=== PATIENT | male | born 1965 | race Caucasian/White ===

== ENCOUNTER 2016-11-26 10:21 | Emergency (ER) | payer OTHER ==
[2016-11-26 10:42] VITALS: BP 108/67
--- NOTE | 2016-12-16 20:49 | UC ---
carmel Jurado Timothy, scribed for Radha Edwards DO on 11/26/16 at 1059 . Cardiac HPI - HPI Summary HPI Summary: Gal Mars is a 51 yo male presenting to [facility] with 6/10 left lateral CP and ache for the past week, getting worse constantly. He denies any Hx of similar Sx or any unusual activities that might instigate chest pain. He states his pain is only present when he is moving his left arm or bending over or lifting, and is in no pain at this moment. Cough also increases the pain. He does not notice pain in the morning until after he wakes up and begins moving around. He denies any other Sx. Pt repeatedly denies nausea. His MHx includes narcolepsy and GERD. - History of Current Complaint Stated Complaint: CHEST PAIN Time Seen by Provider: 11/26/16 11:03 Hx Obtained From: Patient Onset/Duration: Gradual Onset, Lasting Days, Still Present Timing: Constant Initial Severity: Worse Since: - now Current Severity: Moderate Pain Intensity: 6 Chest Pain Location: Left Lateral Aggravating: Position, Movement - of the left arm, Deep Breaths - and coughing Alleviating: Rest Associated Signs & Symptoms: Positive: Chest Pain, Nausea/Vomiting. Negative: Dizziness, SOB - Allergy/Home Medications Allergies/Adverse Reactions: Allergies Allergy/AdvReac Type Severity Reaction Status Date / Time No Known Allergies Allergy Verified 06/18/13 14:55 PMH/Surg Hx/FS Hx/Imm Hx - Additional Past Medical History Additional PMH: narcolepsy GI/ History Of: Reports: Gastroesophageal Reflux - Surgical History Surgical History: None - Family History Known Family History: Negative: Cardiac Disease, Hypertension, Diabetes - Social History Alcohol Use: Occasionally Substance Use Type: None Smoking Status (MU): Never Smoked Tobacco Review of Systems Constitutional: Negative Skin: Negative Eyes: Negative ENT: Negative Respiratory: Negative Cardiovascular: Chest Pain Gastrointestinal: Negative Genitourinary: Negative Motor: Negative Neurovascular: Negative Musculoskeletal: Negative Neurological: Negative Psychological: Negative All Other Systems Reviewed And Are Negative: Yes Physical Exam Triage Information Reviewed: Yes Appearance: Well-Appearing, No Pain Distress, Well-Nourished Vital Signs: Initial Vital Signs Temp 99.0 F 11/26/16 10:38 Pulse 68 11/26/16 10:38 Resp 16 11/26/16 10:38 BP 108/67 11/26/16 10:38 Pulse Ox 100 11/26/16 10:38 Vital Signs Reviewed: Yes Eyes: Positive: Conjunctiva Clear. Negative: Discharge ENT: Positive: Hearing grossly normal. Negative: Muffled/hoarse voice Neck: Positive: Supple, Nontender Respiratory: Positive: Chest non-tender, Lungs clear, Normal breath sounds, No respiratory distress, No accessory muscle use Cardiovascular: Positive: RRR, No Murmur Musculoskeletal: Positive: Other: - tenderness to palpation in the left axilla and ribs 4, 5, and 6. Rib 6 is noted to be slightly anterior to rib 7. Neurological Exam: Normal Neurological: Positive: Alert, Muscle Tone Normal Psychological Exam: Normal Psychological: Positive: Age Appropriate Behavior Skin Exam: Normal Diagnostics - EKG Cardiac Rate: NL - Impression: 1029 NSR at [address] changes. Re-Evaluation - Re-Evaluation First Eval Re-Evaluation Time: 11:25 Change: Unchanged Comment: Pt is informed of his disposition, and is agreeable to course of Tx. - Assessment/Plan Course Of Treatment: Gal Mars is a 51 yo male presenting to [facility] with left lateral CP for the passt week. After clinical examination and review of his EKG , he will be discharged home with rib injury and appriopriate instructions. - Differential Diagnoses - Chest Pain Differential Diagnosis/HQI/PQRI: Chest Wall, GI Disease, Other: - costochondritis - Clinical Impression Provider Diagnoses: rib injury Discharge - Discharge Plan Condition: Stable Disposition: HOME Patient Education Materials: Rib Contusion (ED) Referrals: Babar Peña MD [Primary Care Provider] - 2 Days Additional Instructions: ULTRAM (tramadol hydrochloride): Ultram is an excellent drug for pain relief. It is not a narcotic, but it works in a similar way. Ultram can take up to two hours for full effect. Although not addicting, Ultram is best avoided in patients with a history of drug abuse. Ultram should not be used with alcohol, sleeping pills, or narcotics. If you're prone to seizures, Ultram can make you more likely to have a seizure. Ultram can be hazardous when combined with MAO-inhibitor antidepressants (such as Nardil or Parnate). Be sure your doctor is aware of all medicines you are taking. Persons with severe liver or kidney disease should increase the time between doses of Ultram. Discuss this with your doctor if you're uncertain. Side effects of Ultram can include dizziness, nausea, constipation, sleepiness, and itching. (These side effects are also seen with narcotic pain medicines.) Please call your doctor if you have other disturbing effects. YOU WOULD LIKELY BENEFIT FROM OSTEOPATHIC TREATMENT. WE RECOMMEND THAT YOU FIND AN OSTEOPATHIC PHYSICIAN IN YOUR AREA WHO FOCUSES EXCLUSIVELY ON OSTEOPATHIC MANIPULATIVE MEDICINE WITH EXPERTISE IN MYOFACIAL, LYMPHATIC, VISCERAL AND INTEROSSEOUS WORK Please follow up with your primary care physician regarding your visit to urgent care today. Return to urgent care or the emergency department with any new or recurring symptoms. The documentation as recorded by the carmel mayer Timothy accurately reflects the service I personally performed and the decisions made by , Radha Edwards DO.
== END 2016-11-26 11:43 | disposition home or self-care (01) ==
LOC: UCEAST 10:21
DX: S29.8XXA Other specified injuries of thorax, initial encounter (principal); X58.XXXA Exposure to other specified factors, initial encounter; Y93.9 Activity, unspecified; Y92.9 Unspecified place or not applicable; R11.2 Nausea with vomiting, unspecified
CPT/HCPCS: 93005; 99212; G0463

== ENCOUNTER 2017-07-01 10:11 | Day surgery (SDC) | payer OTHER ==
[~2017-07-01 10:11] MED LIST: Acetaminophen TAB* 325 MG PO PRN; Buffered Lidocaine 0.9% SYRIN* 5 ML/SYR SYRINGE INTRADERM ONE; Buffered Lidocaine 0.9% SYRIN* 5 ML/SYR SYRINGE ONE; Cyclopentolate 1% OPTH.SOL* 2 ML BTL ONE; Ketorolac 0.5% OPHTH (NF) 0.5 % 5 ML BTL ONE; Lidocaine 1% MPF* 2 ML VIAL ONE; Neomycin/Polymy/Dex OPHTH.OIN* 3.5 GM ONE; Phenylephrine 2.5% OPTH.SOL* 2 ML BTL ONE; Povidone Iodine 5% OPTH* 30 ML BTL ONE; Tetracaine 0.5% OPTH.SOL 4 ML* 1 DROP BTL ONE; Tropicamide 1% OPTH.SOL* BTL ONE; acetaZOLAMIDE TAB* 250 MG ONE
[2017-07-01] MEDS ORDERED: Midazolam* 1 MG/ML 2 ML VIAL (2 MG) ONE (10:43)
[2017-07-01 11:52] VITALS: BP 95/63
--- NOTE | 2017-07-02 00:04 | OP ---
DATE OF OPERATION: 07/01/17 - [facility] DATE OF : 65 SURGEON: Mehran Keller MD. ANESTHESIOLOGIST: Bonilla Long DO ANESTHESIA: Monitored anesthesia care. PRE-OP DIAGNOSIS: Cataract left eye. POST-OP DIAGNOSIS: Cataract left eye. OPERATIVE PROCEDURE: Cataract surgery of left eye. IMPLANTS: SN60WF 14.0 diopter lens to the left eye. COMPLICATIONS: None. DESCRIPTION OF PROCEDURE: The patient was given phenylephrine 2.5% and cyclopentolate 1% eye drops to the operative eye in the preoperative area. The patient was brought to the operating room where a time-out was taken to identify the correct patient, site and side of the surgery. The patient's left eye was prepped and draped in usual sterile fashion with 5% Betadine. A second time-out was taken to verify the correct patient, site and side of surgery, and correct lens selection. A lid speculum was placed to the left eye. A 1-mm paracentesis blade was used to make a clear corneal incision in the inferotemporal position. Preservative-free 1% lidocaine was injected into the anterior chamber. DisCoVisc was injected into the anterior chamber. A 2.75 mm keratome blade was used to a make a triplanar incision at the superotemporal position. A cystotome initiated a capsulorrhexis, which was completed with Utrata forceps in a continuous and curvilinear manner. Hydrodissection of the lens was performed with BSS on a cannula. The lens could be spun in the capsular bag. The phacoemulsification handpiece was used with a divide-and- conquer technique to remove the nucleus in its entirety with 15.65 CDE. The I/ A handpiece then removed the residual cortical lens material. The DisCoVisc was injected to inflate the capsular bag. The planned SN60WF 14.0 diopter lens was injected into the capsular bag. The residual DisCoVisc was removed from the eye with the I/A handpiece. The corneal incisions were hydrated and no leaks occurred at physiologic pressure around 20 mmHg per palpation. The lid speculum was removed and drapes removed. Maxitrol ointment was placed on the surface of the operative eye. An adhesive patch and shield was placed on the operative eye. The patient was taken to the postoperative area in stable condition. [id number]/[facility] #: [id number] MTDD
== END 2017-07-01 11:37 | disposition home or self-care (01) ==
LOC: OREAST 10:11
PROVIDERS: ATTEND Student in an Organized Health Care Education/Training Program
DX: H25.12 Age-related nuclear cataract, left eye (principal); H04.121 Dry eye syndrome of right lacrimal gland; D69.6 Thrombocytopenia, unspecified; D72.819 Decreased white blood cell count, unspecified; G47.419 Narcolepsy without cataplexy
CPT/HCPCS: A9270-GY; J2250; V2632

== ENCOUNTER 2017-07-08 06:21 | Day surgery (SDC) | payer OTHER ==
[~2017-07-08 06:21] MED LIST changes: -Buffered Lidocaine 0.9% SYRIN* 5 ML/SYR SYRINGE ONE; -Cyclopentolate 1% OPTH.SOL* 2 ML BTL ONE; -Ketorolac 0.5% OPHTH (NF) 0.5 % 5 ML BTL ONE; -Lidocaine 1% MPF* 2 ML VIAL ONE; -Neomycin/Polymy/Dex OPHTH.OIN* 3.5 GM ONE; -Phenylephrine 2.5% OPTH.SOL* 2 ML BTL ONE; -Povidone Iodine 5% OPTH* 30 ML BTL ONE; -Tetracaine 0.5% OPTH.SOL 4 ML* 1 DROP BTL ONE; -Tropicamide 1% OPTH.SOL* BTL ONE; -acetaZOLAMIDE TAB* 250 MG ONE
[2017-07-08] MEDS ORDERED: Tetracaine 0.5% OPTH.SOL 4 ML* 1 DROP BTL ONE (07:28)
[2017-07-08] MEDS ORDERED: acetaZOLAMIDE TAB* 250 MG ONE (07:28)
[2017-07-08] MEDS ORDERED: Phenylephrine 2.5% OPTH.SOL* 2 ML BTL ONE (07:28)
[2017-07-08] MEDS ORDERED: Tropicamide 1% OPTH.SOL* BTL ONE (07:28)
[2017-07-08] MEDS ORDERED: Buffered Lidocaine 0.9% SYRIN* 5 ML/SYR SYRINGE ONE (07:28)
[2017-07-08] MEDS ORDERED: Cyclopentolate 1% OPTH.SOL* 2 ML BTL ONE (07:28)
[2017-07-08] MEDS ORDERED: Povidone Iodine 5% OPTH* 30 ML BTL ONE (07:28)
[2017-07-08] MEDS ORDERED: Neomycin/Polymy/Dex OPHTH.OIN* 3.5 GM ONE (07:28)
[2017-07-08] MEDS ORDERED: Ketorolac 0.5% OPHTH (NF) 0.5 % 5 ML BTL ONE (07:29)
[2017-07-08] MEDS ORDERED: Midazolam* 1 MG/ML 2 ML VIAL (2 MG) ONE (07:41)
[2017-07-08 08:44] VITALS: BP 100/66
--- NOTE | 2017-07-08 11:16 | OP ---
DATE OF OPERATION: 07/08/17 [facility] DATE OF : 65 SURGEON: Mehran Keller MD. ANESTHESIOLOGIST: Vishal Bloom MD ANESTHESIA: Monitored anesthesia care. PRE-OP DIAGNOSIS: Cataract, right eye. POST-OP DIAGNOSIS: Cataract, right eye. OPERATIVE PROCEDURE: Cataract surgery of the right eye. IMPLANTS: SN60WF 16.0 diopter lens to the right eye. COMPLICATIONS: None. DESCRIPTION OF PROCEDURE: The patient was given phenylephrine 2.5% and cyclopentolate 1% eye drops to the operative eye in the preoperative area. The patient was brought to the operating room where a time-out was taken to identify the correct patient, site, and side of surgery. The patient's right eye was prepped and draped in the usual sterile fashion with 5% Betadine. A second time- out was taken to verify the correct patient, site and side of surgery, and correct lens selection. A lid speculum was placed to the right eye. A 1-mm paracentesis blade was used to make a clear corneal incision in the superotemporal position. Preservative free 1% lidocaine was injected into the anterior chamber. DisCoVisc was then injected into the anterior chamber. A 2.75 mm keratome blade was used to make a triplanar incision at the inferotemporal position. A cystotome initiated a capsulorrhexis, which was completed with Utrata forceps in a continuous and curvilinear manner. Hydrodissection of the lens was performed with BSS on a cannula. The lens could be spun in the capsular bag. The phacoemulsification handpiece was used with a divide and conquer technique to remove the nucleus in its entirety with 10.88 CDE. The I/A handpiece then removed the residual cortical lens material. DisCoVisc was injected to inflate the capsular bag. The planned SN60WF 16.0 diopter lens was injected in the capsular bag. The residual DisCoVisc was removed from the eye with the I/A handpiece. The corneal incisions were hydrated and no leaks occurred at physiologic pressure around 20 mmHg per palpation. The lid speculum was removed and drapes removed. Maxitrol ointment was placed to the surface of the operative eye. An adhesive patch and shield was placed on the operative eye. The patient was taken to the postoperative area in stable condition. [id number]/[facility] #: [id number] MTDD
== END 2017-07-08 08:37 | disposition home or self-care (01) ==
LOC: OREAST 06:21
PROVIDERS: ATTEND Student in an Organized Health Care Education/Training Program
DX: H25.11 Age-related nuclear cataract, right eye (principal); Z96.1 Presence of intraocular lens; H04.121 Dry eye syndrome of right lacrimal gland; K21.9 Gastro-esophageal reflux disease without esophagitis; G47.419 Narcolepsy without cataplexy; F90.0 Attention-deficit hyperactivity disorder, predominantly inattentive type
CPT/HCPCS: A9270-GY; J2250; V2632

== ENCOUNTER 2018-04-06 13:18 | Emergency (ER) | payer OTHER ==
--- OUTSIDE RECORDS SUMMARY | 2018-04-06 13:23 | XMS REPORT ---
:1965 External Reference #:[id number] Author Organization [facility] Address [address] [place] [address] Phone [phone] Care Team Providers Name Role Phone Babar Peña M.D. Care Team Information Bank Note Designer Unavailable Payers Type Date Identification Numbers Payment Provider Subscriber Health Maintenance Effective: Policy Number: [employer] - [employer] Gal [employer] Organization (O) 05/10/2008 [id number] Group Number: [id number] [address] PayID: [id number] [place] [address] Medigap Part B Effective: Policy Number: [employer] Gal Mars 12/23/2007 [id number] Expires: 05/09/2008 Group Name: [employer]- Option A [address] [address] PayID: [id number] [place] [address] Problems Date Description Provider Status Onset: 02/27/2012 King's esophagus Babar Peña M.D. 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 every day F90.[address] 40mg 30caps take one Babar capsule by Casey, mouth every M.D. day Carpal Tunnel Wrist 06/25/2013 - Hx Misc 2units bilateral 35 Babar Stabilizer/Large/X-L 03/04/2017 4. Casey arge 0 M.D. ranitidine 06/01/2008 - Hx Tablets 150mg 60tabs Take 1 Babar 06/01/2008 Tablet Casey, Daily To M.D. Twice Daily If Needed Ranitidine HCL 06/01/2008 - Hx Tablets 150mg 60tabs Take 1 Babar 12/25/2011 Tablet Peña, Daily To M.D. Twice Daily If Needed Dextroamphetamine 12/31/2007 - Hx Tablets 10mg 60tabs 2 qd 34 Babar Sulfate 12/25/2011 7. Casey, 00 M.D. 314.00 Prilosec 12/31/2007 - Hx Capsules DR 20mg 30caps 1 PO qd 530.81 Babar Peña, 08/31/2014 M.D. 530.85 Immunizations CPT Code Status Date Vaccine Lot # [id number] Given 02/04/2015 Tdap (Adacel) [id number] Given 08/01/2011 Influenza Vaccine-Preservative Free 3 Yrs And [id number] Above [id number] Given 08/10/2005 DT (Adult) [id number] Vital Signs Date Vital Result Comment 03/17/2018 Weight 106.00 lb Weight in kg's 48.082 BP Systolic 90 mmHg BP Diastolic 62 mmHg Heart Rate 92 /min Body Temperature 99.4 F Respiratory Rate 16 /min Height 65 inches 5'5" BMI (Body Mass Index) 17.6 kg/m2 09/04/2017 Weight 110.00 lb Weight in kg's 49.896 BP Systolic 90 mmHg BP Diastolic 60 mmHg Heart Rate 85 /min Body Temperature 97.0 F Respiratory Rate 16 /min O2 % BldC Oximetry 99 % 06/25/2017 Weight 107.00 lb Weight in kg's 48.535 BP Systolic 80 mmHg BP Diastolic 50 mmHg Heart Rate 96 /min Body Temperature 98.4 F 03/05/2017 Weight 104.00 lb Weight in kg's 47.174 BP Systolic 98 mmHg BP Diastolic 60 mmHg Heart Rate 64 /min Body Temperature 98.4 F Respiratory Rate 16 /min Height 66 inches 5'6" BMI (Body Mass Index) 16.8 kg/m2 Waist Circumference 26.5 01/26/2016 Weight 110.00 lb Weight in kg's 49.896 BP Systolic 90 mmHg BP Diastolic 60 mmHg Heart Rate 60 /min 02/04/2015 Weight 110.00 lb Weight in kg's 49.896 BP Systolic 109 mmHg BP Diastolic 66 mmHg Heart Rate 74 /min Body Temperature 98.2 F Respiratory Rate 16 /min 09/01/2014 Weight 110.00 lb Weight in kg's 49.896 BP Systolic 86 mmHg BP Diastolic 52 mmHg Heart Rate 88 /min 06/25/2013 Weight 109.00 lb Weight in kg's 49.442 BP Systolic 88 mmHg Peds Cuff BP Diastolic 58 mmHg Peds Cuff Heart Rate 88 /min Body Temperature 96.1 F 01/15/2013 Weight 109.00 lb Weight in kg's 49.442 BP Systolic 90 mmHg BP Diastolic 50 mmHg Heart Rate 88 /min Height 66 inches 5'6" BMI (Body Mass Index) 17.6 kg/m2 12/11/2012 Weight 111.00 lb Weight in kg's 50.350 BP Systolic 90 mmHg BP Diastolic 60 mmHg Heart Rate 100 /min Body Temperature 97.2 F 01/04/2012 Weight 110.00 lb Weight in kg's 49.896 BP Systolic 92 mmHg BP Diastolic 64 mmHg Heart Rate 80 /min 08/09/2010 Weight 109.00 lb Weight in kg's 49.442 BP Systolic 92 mmHg BP Diastolic 64 mmHg Heart Rate 80 /min Body Temperature 96.1 F Right Visual Acuity Distance 20/30 With Glasses Left Visual Acuity Distance 20/30 With Glasses 06/01/2008 Weight 109.00 lb Weight in kg's 49.442 BP Systolic 100 mmHg BP Diastolic 60 mmHg Heart Rate 80 /min Height 65.75 inches 5'5.75" BMI (Body Mass Index) 17.7 kg/m2 01/30/2008 Weight 110.00 lb Weight in kg's 49.896 BP Systolic 90 mmHg BP Diastolic 66 mmHg Heart Rate 120 /min Height 65.75 inches 5'5.75" BMI (Body Mass Index) 17.9 kg/m2 12/31/2007 Weight 108.00 lb Weight in kg's 48.989 BP Systolic 90 mmHg BP Diastolic 60 mmHg Heart Rate 96 /min Height 65.75 inches 5'5.75" BMI (Body Mass Index) 17.6 kg/m2 Results Test Date Test Result H/L Range Note CBC Auto Diff 05/10/2017 White Blood Count 3.8 10^3/uL 3.5-10.8 Red Blood Count 4.55 10^6/uL 4.0-5.4 Hemoglobin 14.6 g/dL 14.0-18.0 Hematocrit 42 % 42-52 Mean Corpuscular Volume 92 fL 80-94 Mean Corpuscular Hemoglobin 32 pg High 27-31 Mean Corpuscular HGB Conc 35 g/dL 31-36 Red Cell Distribution Width 14 % 10.5-15 Platelet Count 116 10^3/uL Low 150-450 Mean Platelet Volume 8 um3 7.4-10.4 Abs Neutrophils 2.8 10^3/uL 1.5-7.7 Abs Lymphocytes 0.6 10^3/uL Low 1.0-4.8 Abs Monocytes 0.3 10^3/uL 0-0.8 Abs Eosinophils 0.1 10^3/uL 0-0.6 Abs Basophils 0 10^3/uL 0-0.2 Abs Nucleated RBC 0 10^3/uL Granulocyte % 72.8 % 38-83 Lymphocyte % 16.0 % Low 25-47 Monocyte % 8.8 % 1-9 Eosinophil % 1.8 % 0-6 Basophil % 0.6 % 0-2 Nucleated Red Blood Cells % 0.1 Laboratory test 12/18/2016 Clotest SEE RESULT BELOW 1 finding Laboratory test 12/18/2016 Surgical Interface Order SEE RESULT BELOW 2 finding Laboratory test 11/06/2016 PSA Screening 0.349 ng/mL 0-4.000 3 finding Lipid Profile 11/06/2016 Triglycerides 65 mg/dL 4 (Trig/Chol/HDL) Cholesterol 130 mg/dL 5 HDL Cholesterol 37.6 mg/dL 6 LDL Cholesterol 79 mg/dL 7 Comp Metabolic Panel 11/06/2016 Sodium 141 mmol/L 133-145 Potassium 3.7 mmol/L 3.5-5.0 Chloride 101 mmol/L 101-111 Co2 Carbon Dioxide 35 mmol/L High 22-32 Anion Gap 5 mmol/L 2-11 Glucose 45 mg/dL Low 70-100 Blood Urea Nitrogen 20 mg/dL 6-24 Creatinine 0.93 mg/dL 0.67-1.17 BUN/Creatinine Ratio 21.5 High 8-20 Calcium 9.5 mg/dL 8.6-10.3 Total Protein 6.5 g/dL 6.4-8.9 Albumin 4.4 g/dL 3.2-5.2 Globulin 2.1 g/dL 2-4 Albumin/Globulin Ratio 2.1 1-3 Total Bilirubin 1.30 mg/dL High 0.2-1.0 Alkaline Phosphatase 62 U/L 34-104 Alt 17 U/L 7-52 Ast 21 U/L 13-39 Egfr Non- 85.7 >60 Egfr 110.2 >60 8 CBC Auto Diff 11/06/2016 White Blood Count 3.2 10^3/uL Low 3.5-10.8 Red Blood Count 4.57 10^6/uL 4.0-5.4 Hemoglobin 14.5 g/dL 14.0-18.0 Hematocrit 42 % 42-52 Mean Corpuscular Volume 93 fL 80-94 Mean Corpuscular Hemoglobin 32 pg High 27-31 Mean Corpuscular HGB Conc 34 g/dL 31-36 Red Cell Distribution Width 14 % 10.5-15 Platelet Count 115 10^3/uL Low 150-450 Mean Platelet Volume 9 um3 7.4-10.4 Abs Neutrophils 2.4 10^3/uL 1.5-7.7 Abs Lymphocytes 0.5 10^3/uL Low 1.0-4.8 Abs Monocytes 0.3 10^3/uL 0-0.8 Abs Eosinophils 0.1 10^3/uL 0-0.6 Abs Basophils 0 10^3/uL 0-0.2 Abs Nucleated RBC 0.02 10^3/uL Granulocyte % 73.7 % 38-83 Lymphocyte % 14.6 % Low 25-47 Monocyte % 8.4 % 1-9 Eosinophil % 2.5 % 0-6 Basophil % 0.8 % 0-2 Nucleated Red Blood Cells % 0.7 CBC Auto Diff 03/17/2015 White Blood Count 4.5 10^3/uL Low 4.8-10.8 Red Blood Count 4.47 10^6/uL 4.0-5.4 Hemoglobin 14.3 g/dL 14.0-18.0 Hematocrit 42 % 42-52 Mean Corpuscular Volume 94 fL 80-94 Mean Corpuscular Hemoglobin 32 pg High 27-31 Mean Corpuscular HGB Conc 34 g/dL 31-36 Red Cell Distribution Width 14 % 10.5-15 Platelet Count 132 10^3/uL Low 150-450 Mean Platelet Volume 8 um3 7.4-10.4 Abs Neutrophils 3.6 10^3/uL 1.5-7.7 Abs Lymphocytes 0.4 10^3/uL Low 1.0-4.8 Abs Monocytes 0.3 10^3/uL 0-0.8 Abs Eosinophils 0.1 10^3/uL 0-0.6 Abs Basophils 0 10^3/uL 0-0.2 Abs Nucleated RBC 0.01 10^3/uL Granulocyte % 80.1 % 38-83 Lymphocyte % 9.9 % Low 25-47 Monocyte % 6.8 % 1-9 Eosinophil % 2.3 % 0-6 Basophil % 0.9 % 0-2 Nucleated Red Blood Cells % 0.3 Liver Function Panel 03/17/2015 Total Protein 6.6 g/dL 6.4-8.9 Albumin 4.6 g/dL 3.2-5.2 Globulin 2.0 g/dL 2-4 Albumin/Globulin Ratio 2.3 1-3 Total Bilirubin 1.10 mg/dL High 0.2-1.0 Direct Bilirubin 0.20 mg/dL High 0.03-0.18 Indirect Bilirubin 0.9 mg/dL 0.3-1.0 Alkaline Phosphatase 52 U/L 34-104 Alt 15 U/L 7-52 Ast 20 U/L 13-39 Hepatitis B Noemi AB 03/17/2015 Hepatitis B Surface AB Nonreactive Nonreactive Titer Hep B Surf AB Level < 3.10 mIU/mL <12 9 Laboratory test finding 03/17/2015 Hepatitis C Antibody Nonreactive Nonreactive Hepatitis B Surface Antigen Nonreactive Nonreactive Hepatitis B Core Total Ab Negative Negative 10 CBC No Diff 02/04/2015 White Blood Count 2.9 10^3/uL Low 4.8-10.8 Red Blood Count 4.86 10^6/uL 4.0-5.4 Hemoglobin 15.9 g/dL 14.0-18.0 Hematocrit 45 % 42-52 Mean Corpuscular Volume 93 fL 80-94 Mean Corpuscular Hemoglobin 33 pg High 27-31 Mean Corpuscular HGB Conc 35 g/dL 31-36 Red Cell Distribution Width 14 % 10.5-15 Platelet Count 120 10^3/uL Low 150-450 Mean Platelet Volume 9 um3 7.4-10.4 Laboratory test finding 02/04/2015 TSH (Thyroid Stimulating 1.94 ?IU/mL 0.34-5.60 Horm) Iron & Iron Binding 02/04/2015 Total Iron Binding 294 g/dL 250-450 Capacity Capacity Iron 53 g/dL 50-212 Unsaturated Iron Binding 241 g/dL % Iron Saturation 18 % 15-55 Retic Count 02/04/2015 Retic Count 2.6 % High 0.5-1.5 Corrected Retic Count 2.6 % High 0.5-1.5 Maturation Factor Retic 1.0 Retic Index 2.60 Mean Retic Volume 105.6 Immature Retic Fraction 0.43 RBC Retic Count 4.86 10^6/uL 4.6-6.2 Hematocrit for Retic CNT 45 % 42-52 Laboratory test finding 02/04/2015 Ferritin 130.4 ng/mL 24-336 Erythrocyte Sed Rate 7 mm/Hr 0-14 Vitamin B12 591 pg/mL 180-914 11 LDH 145 U/L 140-271 Comp Metabolic Panel 02/04/2015 Sodium 139 mmol/L 133-145 Potassium 4.5 mmol/L 3.5-5.0 Chloride 104 mmol/L 101-111 Co2 Carbon Dioxide 31 mmol/L 22-32 Anion Gap 4 mmol/L 2-11 Glucose 76 mg/dL 70-100 Blood Urea Nitrogen 19 mg/dL 6-24 Creatinine 0.95 mg/dL 0.67-1.17 BUN/Creatinine Ratio 20.0 8-20 Calcium 9.2 mg/dL 8.6-10.3 Total Protein 6.6 g/dL 6.4-8.9 Albumin 4.5 g/dL 3.2-5.2 Globulin 2.1 g/dL 2-4 Albumin/Globulin Ratio 2.1 1-3 Total Bilirubin 1.00 mg/dL 0.2-1.0 Alkaline Phosphatase 59 U/L 34-104 Alt 12 U/L 7-52 Ast 18 U/L 13-39 Egfr Non- 84.3 >60 Egfr 108.4 >60 12 CBC No Diff 09/01/2014 White Blood Count 3.2 10^3/uL Low 4.8-10.8 Red Blood Count 4.35 10^6/uL 4.0-5.4 Hemoglobin 14.0 g/dL 14.0-18.0 Hematocrit 40 % Low 42-52 Mean Corpuscular Volume 93 fL 80-94 Mean Corpuscular Hemoglobin 32 pg High 27-31 Mean Corpuscular HGB Conc 35 g/dL 31-36 Red Cell Distribution Width 14 % 10.5-15 Platelet Count 111 10^3/uL Low 150-450 Mean Platelet Volume 9 um3 7.4-10.4 Laboratory test 01/15/2013 HIV 1 2 AB Self Nonreactive Nonreactive 13 finding Referred Urine DIP 01/15/2013 Leukocytes neg Neg Urine Nitrites neg Neg Urine pH 7 High 5-6 Total Protein, Urine neg Neg Urine Glucose norm Norm Urine Ketones neg Neg Urobilinogen norm Norm Urine Bilirubin neg Neg Urine Blood neg Neg Specific [place] 1.010 1.01-1.02 CBC Auto Diff 01/01/2013 White Blood Count 4.0 10^3/uL Low 4.8-10.8 Red Blood Count 4.67 10^6/uL 4.0-5.4 Hemoglobin 14.9 g/dL 14.0-18.0 Hematocrit 44 % 42-52 Mean Corpuscular Volume 94 fL 80-94 Mean Corpuscular Hemoglobin 32 pg High 27-31 Mean Corpuscular HGB Conc 34 g/dL 31-36 Red Cell Distribution Width 14 % 10.5-15 Platelet Count 113 10^3/uL Low 150-450 Mean Platelet Volume 9 um3 7.4-10.4 Abs Neutrophils 3.0 10^3/uL 1.5-7.7 Abs Lymphocytes 0.5 10^3/uL Low 1.0-4.8 Abs Monocytes 0.3 10^3/uL 0-0.8 Abs Eosinophils 0.1 10^3/uL 0-0.6 Abs Basophils 0 10^3/uL 0-0.2 Abs Nucleated RBC 0.01 10^3/uL Granulocyte % 76.0 % 38-83 Lymphocyte % 12.8 % Low 25-47 Monocyte % 7.8 % 1-9 Eosinophil % 2.6 % 0-6 Basophil % 0.8 % 0-2 Nucleated Red Blood Cells % 0.3 Comp Metabolic Panel 01/01/2013 Sodium 138 mmol/L 133-145 Potassium 3.9 mmol/L 3.5-5.0 Chloride 103 mmol/L 101-111 Co2 Carbon Dioxide 31.0 mmol/L 22-32 Anion Gap 4.0 mmol/L 2-11 Glucose 86 mg/dL 70-100 Blood Urea Nitrogen 18 mg/dL 6-24 Creatinine 1.00 mg/dL 0.50-1.40 BUN/Creatinine Ratio 18.0 8-20 Calcium 9.3 mg/dL 8.1-9.9 Total Protein 6.2 g/dL 6.2-8.1 Albumin 4.4 g/dL 3.6-5.4 Globulin 1.8 g/dL Low 2-4 Albumin/Globulin Ratio 2.4 1-3 Total Bilirubin 1.4 mg/dL 0.4-1.5 Alkaline Phosphatase 50 U/L 30-110 Alt 24 U/L 14-54 Ast 25 U/L 12-42 Egfr Non- 80.1 >60 Egfr 103.0 >60 14 Lipid Profile (Trig/Chol/HDL) 01/01/2013 Triglycerides 70 mg/dL 40-200 Cholesterol 143 mg/dL Less than 200 HDL Cholesterol 40 mg/dL 40-60 15 Cholesterol/HDL Ratio 3.6 Average 1-4.44 LDL Cholesterol 89.0 mg/dL Less Than 100 16 Urine DIP 12/11/2012 Leukocytes NEG Neg Urine Nitrites NEG Neg Urine pH 8 High 5-6 Total Protein, Urine NEG Neg Urine Glucose NORM Norm Urine Ketones NEG Neg Urobilinogen NORM Norm Urine Bilirubin NEG Neg Urine Blood NEG Neg Specific [place] 1.010 1.01-1.02 Laboratory test finding 01/08/2012 Glucose 82 mg/dL 70-100 CBC Auto Diff 01/08/2012 White Blood Count 3.4 CUMM Low 4.8-10.8 Red Cell Count 4.44 CUMM Low 4.6-6.2 Hemoglobin 14.5 g/dL 14.0-18.0 Hematocrit 41 % Low 42-52 Mean Corpuscular Volume 92 um3 80-94 Mean Corpuscular Hemoglob 33 pg High 27-31 Mean Corpuscular HGB Cone 36 g/dL 32-36 Redcell Distribution WDTH 14 % 10.5-15 Platelet Count 110 CUMM Low 150-450 Mean Platelet Volume 8.6 um3 7.4-10.4 Gran % 70.7 % 38-83 Lymph % 17.2 % Low 25-47 Mononuclear % 7.8 % 1-9 Eosinophil % 3.9 % 0-6 Basophil % 0.4 % 0-2 Abs Lymphs 0.6 Low 1.0-4.8 Abs Mononuclear 0.3 0-0.8 Absolute Neutrophil Count 2.4 1.5-7.7 Abs Eosinophils 0.1 0-0.6 Abs Basophils 0 0-0.2 17 Lipid Profile (Trig/Chol/HDL) 01/08/2012 Triglyceride 52 mg/dL 40-200 Cholesterol 125 mg/dL Less Than 200 18 High Density Lipoprotein 34 mg/dL Low 40-60 19 Cholesterol/HDL Ratio 3.68 AVERAGE 1-4.97 Low Density Lipoprotein 81 mg/dL Less Than 100 20 CBC W/Manual Diff 08/09/2010 WBC 4.1 x10E3/uL Low 4.3-10.9 RBC 4.53 x10E6/uL Low 4.70-6.20 Hemoglobin 14.5 g/dL 13.0-17.0 Hematocrit 41.3 % 39.0-50.0 MCV 91.2 fl 82.0-98.0 MCH 32.0 pg 27.5-33.5 MCHC 35.1 g/dL 32.0-36.0 RDW 13.8 % 11.5-14.5 Platelet Count 121 x10E3/uL Low 130-400 MPV 10.7 fl High 6.5-10.5 Manual Differential PERFORMED Laboratory test finding 08/09/2010 Sedimentation Rate 7 MM/HR 0-15 Feflex Diff+Morph For CBC4D 08/09/2010 Segmented Neutrophils 81.0 % High 44.0-74.0 Band 0.0 % 0.0-4.0 Lymphocytes 11.0 % Low 15.0-45.0 Monocytes 8.0 % 2.0-13.0 Eosinophils 0.0 % 0.0-6.0 Basophils 0.0 % 0.0-2.0 Neutrophil Absolute 3.3 x10E3/uL 1.4-7.0 Lymphocytes Absolute 0.5 x10E3/uL Low 1.0-3.4 Monocyte Absolute 0.3 x10E3/uL 0.2-1.0 Eosinophil Absolute 0.0 x10E3/uL 0.0-0.5 Basophil Absolute 0.0 x10E3/uL 0.0-0.2 Lipid Profile (Trig/Chol/HDL) 02/02/2008 Triglyceride 81 mg/dL 40-200 Cholesterol 128 mg/dL Less Than 200 21 High Density Lipoprotein 34 mg/dL Low 40-60 22 Cholesterol/HDL Ratio 3.76 AVERAGE 1-4.97 Low Density Lipoprotein 78 mg/dL Less Than 100 23 1 SEE RESULT BELOW Name: GAL MARS : [address]: Lam Brooks MD Acct: [id number] Unit: [id number] AGE: 51 Location: ENDO Re12/18/16 SEX: M Status: REG REF SPEC: [id number] ATIYA: 12/18/16-[address] [facility] [address]: Lam Brooks MD REQ: [id number] RECD: 12/18/16-1 STATUS: MAXX OROZCO DR: Babar Peña MD _ SOURCE: GAS ANTRUM SPDESC: ORDERED: Clotest Procedure Result Reported Site Clotest Final 12/19/16- 0738 ML Clotest Positive * ML - MAIN LAB (PSC1) . END OF REPORT * ML=Testing performed at Main Lab DEPARTMENT OF PATHOLOGY, [address] [place] [address] Ralf Geronimo M.D. Director [facility] # [id number] 2 SEE RESULT BELOW Name: GAL MARS : [address]: Lam Brooks MD Acct: [id number] Unit: [id number] AGE: 51 Location: ENDO Re12/18/16 SEX: M Status: DEP REF SPEC: [id number] ATIYA: 12/18/16- SUBM DR: Lam Brooks MD REQ: [id number] RECD: 12/18/16-1112 STATUS: JEFFERSON OROZCO DR: Babar Peña MD _ ORDERED: LEVEL IV/2 FINAL DIAGNOSIS 1. Small bowel, third portion of duodenum, biopsy: -- Small bowel mucosa with normal villous architecture and no significant pathologic abnormality. 2. Esophagus, 38 cm, biopsy: -- Gastric Cardia-type mucosa with chronic inflammation and focal hyperplastic change. -- Focal goblet cell/intestinal metaplasia identified. -- No squamous component identified. CLINICAL HISTORY Routine; dyspepsia, King's POST-OPERATIVE DIAGNOSIS Larynx - normal; esophagus - mild scar at 38-39 4 pts, ? short 1-11/2 cm King's, biopsied x3 at 38, esophagogastric loose; stomach - normal, CLOtest; duodenum - normal. Colonoscopy - narrow, all normal. Conclusions/Plan: Loose esophagogastric, esophageal scar; normal colon GROSS DESCRIPTION 1. The specimen is received in formalin labeled, Biopsy Third Portion Duodenum, and consists of a 0.6 x 0.5 by up to 0.2 cm aggregate of carlton-pink irregular soft tissue fragments, which is submitted entirely in one cassette. 2. The specimen is received in formalin labeled, Biopsy Esophagus at 38 cm , and consists of a 0.7 x 0.4 x 0.2 cm aggregate of carlton-pink irregular soft tissue fragments , which is submitted entirely in one cassette. Signed (signature on file) Ralf Geronimo MD 1322 END OF REPORT * ML=Testing performed at Main Lab DEPARTMENT OF PATHOLOGY, [address] [place] [address] Ralf Geronimo M.D. Director [facility] # [id number] 3 Serum levels of PSA measured using the Tori Daija DXI Hybritech immunoassay should not be interpreted as absolute evidence of the presence or absence of disease. The PSA value should be used in conjunction with other pertinent clinical diagnostic procedures. A PSA value in the range of 0.1 to 0.6 ng/ml is indeterminate if being used as an indicator of recurrent or residual disease. The values obtained with different assay methods or kits cannot be used interchangeably. 4 Desirable <150 Borderline high 150-199 High 200-499 Very High >500 5 Desirable <200 Borderline high 200-239 High >239 6 Low <40 Desirable: 40-60 High: >60 7 Desirable: <100 mg/dL Near Optimal: 100-129 mg/dL Borderline High: 130-159 mg/dL High: 160-189 mg/dL Very High: >189 mg/dL 8 Because ethnic data is not always readily available, this report includes an eGFR for both -Americans and non- Americans. The National Kidney Disease Education Program (NKDEP) does not endorse the use of the MDRD equation for patients that are not between the ages of 18 and 70, are , have extremes of body size, muscle mass, or nutritional status, or are non- or non-. According to the National Kidney Foundation, irrespective of diagnosis, the stage of the disease is based on the level of kidney function: Stage Description GFR(mL/min/1.73 m(2)) 1 Kidney damage with normal or decreased GFR 90 2 Kidney damage with mild decrease in GFR 60-89 3 Moderate decrease in GFR 30-59 4 Severe decrease in GFR 15-29 5 Kidney failure <15 (or dialysis) 9 This assay does not differentiate between reactivity due to a vaccine-induced immune response or an immune response induced by infection with HBV. 10 Test Performed by: [place] [address] Utility Bag Assembler: Arben Foote II, M.D., Ph.D. 11 Normal Range 180 to 914 Indeterminate Range 145 to 180 Deficient Range <145 12 Because ethnic data is not always readily available, this report includes an eGFR for both -Americans and non- Americans. The National Kidney Disease Education Program (NKDEP) does not endorse the use of the MDRD equation for patients that are not between the ages of 18 and 70, are , have extremes of body size, muscle mass, or nutritional status, or are non- or non-. According to the National Kidney Foundation, irrespective of diagnosis, the stage of the disease is based on the level of kidney function: Stage Description GFR(mL/min/1.73 m(2)) 1 Kidney damage with normal or decreased GFR 90 2 Kidney damage with mild decrease in GFR 60-89 3 Moderate decrease in GFR 30-59 4 Severe decrease in GFR 15-29 5 Kidney failure <15 (or dialysis) 13 It is recognized that currently available assays for the detection of antibodies to HIV-1 and/or HIV-2 may not detect all infected individuals. HIV antibodies may be undetectable in some stages of the infection and in some clinical conditions. The performance of this assay has not been established for populations of infants or children. Assayed by Chemiluminescence Microparticle Immunoassay on the Siemens Advia Centaur CP. Values obtained with different methods or kits cannot be used interchangeably.The diagnostic specificity of the ADVIA Centaur 1/O/2 Enhanced assay in the low risk population was 99.90% (6052/6058) with a 95% confidence interval of 99.78 to 99.96%. 14 Because ethnic data is not always readily available, this report includes an eGFR for both -Americans and non- Americans. The National Kidney Disease Education Program (NKDEP) does not endorse the use of the MDRD equation for patients that are not between the ages of 18 and 70, are , have extremes of body size, muscle mass, or nutritional status, or are non- or non-. According to the National Kidney Foundation, irrespective of diagnosis, the stage of the disease is based on the level of kidney function: Stage Description GFR(mL/min/1.73 m(2)) 1 Kidney damage with normal or decreased GFR 90 2 Kidney damage with mild decrease in GFR 60-89 3 Moderate decrease in GFR 30-59 4 Severe decrease in GFR 15-29 5 Kidney failure <15 (or dialysis) 15 HDL Interpretation: Undesirable: High Risk: Less than 40 MG/DL Desirable: Low Risk: Greater than 60 MG/DL 16 LDL Interpretation: Low Risk Optimal Level: LDL Less than 100 MG/DL Near or Above Optimal: LDL 100-129 MG/DL Borderline High Risk: LDL 130-159 MG/DL High Risk: LDL 160-189 MG/DL Very High Risk: LDL Greater than 189 MG/DL 17 Lymphopenia % 18 CHOLESTEROL INTERPRETATION: Desirable: Less than 200 MG/DL Borderline-High Risk: 200-239 MG/DL High-Risk: 240 MG/DL and over 19 HDL INTERPRETATION: Undesirable: High Risk: Less than 40 MG/DL Desirable: Low Risk: Greater than 60 MG/DL 20 LDL INTERPRETATION: Low Risk Optimal Level: LDL Less than 100 MG/DL Near or Above Optimal: LDL 100-129 MG/DL Borderline High Risk: LDL 130-159 MG/DL High Risk: LDL 160-189 MG/DL Very High Risk: LDL Greater than 189 MG/DL 21 CHOLESTEROL INTERPRETATION: Desirable: Less than 200 MG/DL Borderline-High Risk: 200-239 MG/DL High-Risk: 240 MG/DL and over 22 HDL INTERPRETATION: Undesirable: High Risk: Less than 40 MG/DL Desirable: Low Risk: Greater than 60 MG/DL 23 LDL INTERPRETATION: Low Risk Optimal Level: LDL Less than 100 MG/DL Near or Above Optimal: LDL 100-129 MG/DL Borderline High Risk: LDL 130-159 MG/DL High Risk: LDL 160-189 MG/DL Very High Risk: LDL Greater than 189 MG/DL Procedures Date CPT Code Description Status Comment 03/17/2018 43995 Hra-Admin Patient Focused Completed Health Risk Assessment Instrument 03/05/2017 25485 Hra-Admin Patient Focused Completed Health Risk Assessment Instrument 03/05/2017 61597 EKG, at Least 12 Leads Completed w/Interpretation and Report 11/21/2016 Colonoscopy Completed normal. (prior 2003 - normal) Repeat expected 2026. 12/11/2012 90989 Audiometric Screening Test, Completed Pure Tone, Air Only 01/04/2012 46583 EKG, at Least 12 Leads Completed w/Interpretation and Report Encounters Type Date Location Provider CPT E/M Dx Office Visit 03/17/2018 2:15p [facility] Babar Peña M.D. 67873 Z00.00 D69.6 F90.0 K22.70 Office Visit 09/04/2017 9:45a Main Office Babar Peña M.D. 13471 D69.6 K21.9 M20.5x9 F90.0 Office Visit 06/25/2017 11:30a Main Office Babar Peña M.D. 65067 Z01.818 H26.9 Office Visit 03/05/2017 1:15p Main Office Babar Peña M.D. 10801 Z00.00 D69.6 F90.9 K22.70 Office Visit 01/26/2016 4:30p Main Office Babar Peña M.D. 83683 F90.9 K22.70 D69.6 Office Visit 02/04/2015 11:30a Main Office Babar Peña M.D. 35857 530.85 314.00 287.5 285.8 V06.1 Office Visit 09/01/2014 11:15a Main Office Babar Peña M.D. 83316 530.85 314.00 287.5 Office Visit 06/25/2013 9:30a Main Office Babar Peña M.D. 91206 354.0 Office Visit 01/15/2013 9:30a Main Office Babar Peña M.D. 83547 V70.0 530.85 314.00 780.50 110.1 287.5 Office Visit 12/11/2012 11:15a Main Office Babar Peña M.D. 79268 780.50 388.30 Office Visit 01/04/2012 9:00a Main Office Babar Peña M.D. 04829 V70.0 530.85 314.00 Office Visit 08/09/2010 3:30p Main Office Babar Peña M.D. 08366 784.0 Office Visit 06/01/2008 10:30a Main Office Babar Peña M.D. 19073 530.85 314.00 Office Visit 01/30/2008 11:15a Main Office Babar Peña M.D. 73549 840.4 Office Visit 12/31/2007 1:15p Main Office Babar Peña M.D. 91310 V70.0 530.81 530.85 314.00 840.4 Plan of Care 03/17/2018 - Babar Peña M.D.Z00.00 Encntr for general adult medical exam w/o abnormal findingsComments:HRA reviewed. Low framingham score.Encouraged to continue regular hiking and walking. Declines Hep A. Wants to consider Shingrix vaccine after his bed on the market for a longer periodDiscussed pros and cons of PSA testing. Patient desires yearly PSA testing. He wants to wait until blood work is due in .6 Thrombocytopenia, unspecifiedComments:Slight chronic thrombocytopenia has been stable.Now following regularly with hematology with plan tofollow blood counts every 12 months Next in VjjsalJ33.0 Attn-defct hyperactivity disorder, predom inattentive typeComments: Reports responding well to current medication.Urine drug screen today to evaluate for compliance andother drugs of abuseFollow up:6 months.K22.70 King 's esophagus without dysplasiaComments:No symptoms of concern.Most recent endoscopy (2016) with no evidence of metaplasia
[2018-04-06 13:25] VITALS: BP 119/80
--- NOTE | 2018-04-06 13:33 | UC ---
Eye Complaint HPI - HPI Summary HPI Summary: no pain or no known injuryhas red area in left eye - History of Current Complaint Chief Complaint: UCEye Stated Complaint: EYE COMPLAINT Time Seen by Provider: 04/06/18 13:25 Hx Obtained From: Patient Onset/Duration: Sudden Onset, Lasting Days - 2, Still Present Timing: Constant Pain Intensity: 0 Pain Scale Used: 0-10 Numeric Location of Injury: Conjunctiva Aggravating Factor(s): Nothing Alleviating Factor(s): Nothing Associated Signs And Symptoms: Positive: Negative - Allergies/Home Medications Allergies/Adverse Reactions: Allergies Allergy/AdvReac Type Severity Reaction Status Date / Time No Known Allergies Allergy Verified 04/06/18 13:25 PMH/Surg Hx/FS Hx/Imm Hx Previously Healthy: No GI/ History: Gastroesophageal Reflux Psychological History: Other Other Psychological History: narcelepsey - Surgical History Surgical History: Yes Surgery Procedure, Year, and Place: NASAL SURGERY - Family History Known Family History: Negative: Cardiac Disease, Hypertension, Diabetes - Social History Occupation: Employed Full-time Lives: Dormitory/Roommates Alcohol Use: Occasionally Alcohol Amount: 3 DRINKS Q MONTH Substance Use Type: None Smoking Status (MU): Never Smoked Tobacco Review of Systems Constitutional: Negative Skin: Negative Eyes: Eye Redness - left ENT: Negative Respiratory: Negative Cardiovascular: Negative Gastrointestinal: Negative Genitourinary: Negative Motor: Negative Neurovascular: Negative Musculoskeletal: Negative Neurological: Negative Psychological: Negative Is Patient Immunocompromised?: No All Other Systems Reviewed And Are Negative: Yes Physical Exam Triage Information Reviewed: Yes Appearance: Well-Appearing, No Pain Distress, Well-Nourished Vital Signs: Initial Vital Signs Temp 98.1 F 04/06/18 13:22 Pulse 72 04/06/18 13:22 Resp 12 04/06/18 13:22 BP 119/80 04/06/18 13:22 Pulse Ox 100 04/06/18 13:22 Vital Signs Reviewed: Yes Eye Exam: Normal Eyes: Positive: Conjunctiva Clear, Other: - os subconj. hemmorage ENT Exam: Normal ENT: Positive: Normal ENT inspection, Hearing grossly normal. Negative: Nasal congestion, Trismus, Muffled voice, Hoarse voice, Dental tenderness, Sinus tenderness Dental Exam: Normal Neck exam: Normal Neck: Positive: Supple, Nontender Respiratory Exam: Normal Respiratory: Positive: Chest non-tender, No respiratory distress, No accessory muscle use Cardiovascular Exam: Normal Cardiovascular: Positive: RRR, Pulses Normal, Brisk Capillary Refill Musculoskeletal Exam: Normal Musculoskeletal: Positive: Strength Intact, ROM Intact, No Edema Neurological Exam: Normal Neurological: Positive: Alert, Muscle Tone Normal Psychological Exam: Normal Skin Exam: Normal Eye Complaint Course/Dx - Course Course Of Treatment: no treatment necessay-no eye drops or interventions, follow with pcp prn - Differential Dx/Diagnosis Provider Diagnoses: os subconjuctival hemmorage Discharge - Sign-Out/Discharge Documenting (check all that apply): Patient Departure - Discharge Plan Condition: Stable Disposition: HOME Patient Education Materials: Subconjunctival Hemorrhage (ED) Referrals: Babar Peña MD [Primary Care Provider] - If Needed - Billing Disposition and Condition Condition: STABLE Disposition: Home
== END 2018-04-06 13:38 | disposition home or self-care (01) ==
LOC: UCEAST 13:18
DX: H11.32 Conjunctival hemorrhage, left eye (principal)
CPT/HCPCS: 99211; G0463

== ENCOUNTER 2018-04-12 07:57 | Emergency (ER) | payer OTHER ==
[2018-04-12 08:07] VITALS: BP 122/80
--- NOTE | 2018-04-12 08:14 | UC ---
Eye Complaint HPI - HPI Summary HPI Summary: Rhiannon, Denise Lebron, scribed for attending Nati Medina MD. Pt is a 52 y/o M who presents to [facility] c/o seeing "flashes of light" in the left eye. Pt reports that since about 2100 last night he has been experiencing intermittent "slivers of light" on the "far side" of his vision. States that he is able see clearly and has no associated pain. Reports also having "floaters." Denies any ARMAS or narrowing of visual field. No prior similar episodes. FHx retinal detachment of which he is very concerned about and is his reason for coming to [facility]. PSHx cataracts bilaterally, last one in July 2017. 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 Wears glasses for reading. - History of Current Complaint Chief Complaint: UCEye Stated Complaint: LEFT EYE PAIN Time Seen by Provider: 04/12/18 08:09 Hx Obtained From: Patient Onset/Duration: Lasting Hours - Since last night at 2100, Still Present Timing: Intermittent Episode Lasting Severity Currently: None Pain Intensity: 0 Pain Scale Used: 0-10 Numeric Aggravating Factor(s): Nothing Alleviating Factor(s): Nothing Associated Signs And Symptoms: Positive: Negative - Allergies/Home Medications Allergies/Adverse Reactions: Allergies Allergy/AdvReac Type Severity Reaction Status Date / Time No Known Allergies Allergy Verified 04/12/18 08:07 PMH/Surg Hx/FS Hx/Imm Hx GI/ History: Gastroesophageal Reflux Neurological History: Other Other Neurological History: Narcolepsy - Surgical History Surgical History: Yes Surgery Procedure, Year, and Place: NASAL SURGERY - Family History Known Family History: Positive: Other - Retinal detachment Negative: Cardiac Disease, Hypertension, Diabetes - Social History Alcohol Use: Occasionally Alcohol Amount: 3 DRINKS Q MONTH Substance Use Type: None Smoking Status (MU): Never Smoked Tobacco Review of Systems Constitutional: Negative Skin: Negative Eyes: Other - "floaters", seeing "slivers of light" ENT: Negative Respiratory: Negative Cardiovascular: Negative Gastrointestinal: Negative Genitourinary: Negative Motor: Negative Neurovascular: Negative Musculoskeletal: Negative Neurological: Negative Psychological: Negative All Other Systems Reviewed And Are Negative: Yes - Comments Additional Review of Systems Comments: NEGATIVE: pain, ARMAS, narrowing of the visual field Physical Exam - Summary Physical Exam Summary: Appearance: Well-appearing, Well-nourished Skin: Warm Eyes: 3 mm sunconjunctival hemorrhage of his left sclera, PERRL ENT: Normal Neck: Supple, nontender Respiratory: Clear to auscultation Cardiovascular: Regular rate, regular rhythm. Normal S1, S2. Musculoskeletal: Normal, Strength/ROM Intact Neurological: Normal, A&Ox3 Psychiatric: Normal General: No acute distress Visual Acuity: Left eye 20/30, Right eye 20/20, bilateral 20/20 Triage Information Reviewed: Yes Vital Signs: Initial Vital Signs Temp 98.8 F 04/12/18 08:03 Pulse 105 04/12/18 08:03 Resp 18 04/12/18 08:03 BP 122/80 04/12/18 08:03 Pulse Ox 100 04/12/18 08:03 Vital Signs Reviewed: Yes Eye Complaint Course/Dx - Course Course Of Treatment: Pt experiences sudden "flashes of light" in let eye without any chnages in vision, left eye acuity is 20/30, right eye 20/20 and B/ L is 20/20. States he has retinal detachment in his family, optho - [facility] is closed today- advised to go to ED, as pt is extremely concerned - Differential Dx/Diagnosis Provider Diagnoses: SCOTOMA IN LEFT EYE Discharge - Sign-Out/Discharge Documenting (check all that apply): Patient Departure - Discharge - to ED - Discharge Plan Condition: Stable Disposition: HOME Patient Education Materials: Visual Floaters (ED) Referrals: Babar Peña MD [Primary Care Provider] - Additional Instructions: PLEASE GO TO ER - Billing Disposition and Condition Condition: STABLE Disposition: Home
== END 2018-04-12 08:37 | disposition home or self-care (01) ==
LOC: UCEAST 07:57
DX: H53.452 Other localized visual field defect, left eye (principal)
CPT/HCPCS: 99212; G0463

== ENCOUNTER 2018-04-12 08:54 | Emergency (ER) | payer OTHER ==
--- NOTE | 2018-04-12 10:08 | ED ---
Throat Pain/Nasal Congestion - HPI Summary HPI Summary: This is leyla Ruelas documenting for attending Dr. Shea Tipton MD. The patient is a 52 y/o M presenting to [facility] c/o intermittent visual flashes of light and small subconjuctival hematoma in the left eye starting last night at 21:00 while the pt was driving. There is no pain associated. Pt denies numbness or weakness in extremities, changes in vision, and recent coughing. He states that he also been seeing floaters for awhile, which are being monitored by his enamel machine operator. He was unable to schedule an appointment with his enamel machine operator today so he came to the ED. He has hx of bilateral cataracts, narcolepsy, and GERD. He does not have diabetes or HTN. He has fhx of retinal detachment and is worried that he could be detaching his retina. - History of Current Complaint Chief Complaint: EDEyeProblem Time Seen by Provider: 04/12/18 09:43 Hx Obtained From: Patient Onset/Duration: Sudden Onset, Lasting Hours - starting 21:00 last night, Still Present Severity: Mild Associated Signs And Symptoms: Positive: Negative - changes in vision, numbness or weakness in extremities Cough: None - Allergies/Home Medications Allergies/Adverse Reactions: Allergies Allergy/AdvReac Type Severity Reaction Status Date / Time No Known Allergies Allergy Verified 04/12/18 09:18 Home Medications: Home Medications Glucosamine CAP (NF) 1 cap PO DAILY 04/12/18 [History Confirmed 04/12/18] Turmeric 500 mg Capsule 1 cap PO DAILY 04/12/18 [History Confirmed 04/12/18] PMH/Surg Hx/FS Hx/Imm Hx Endocrine/Hematology History: Denies: Hx Diabetes Cardiovascular History: Denies: Hx Hypertension GI History: Reports: Hx Gastroesophageal Reflux Disease - ON MEDS PT. STATES CONTROLLED Denies: Other GI Disorders Sensory History: Reports: Hx Cataracts - BILAT, Hx Contacts or Glasses - GLASSES Denies: Hx Hearing Aid Opthamlomology History: Reports: Hx Cataracts - BILAT, Hx Contacts or Glasses - GLASSES - Surgical History Surgery Procedure, Year, and Place: NASAL SURGERY Hx Anesthesia Reactions: No Infectious Disease History: No Infectious Disease History: Denies: Traveled Outside the [place] in Last 30 Days - Family History Known Family History: Positive: Other - Retinal detachment in three siblings Negative: Cardiac Disease, Hypertension, Diabetes - Social History Alcohol Use: Rare Alcohol Amount: 3 DRINKS Q MONTH Substance Use Type: Reports: None Smoking Status (MU): Never Smoked Tobacco Review of Systems Positive: Other - POSITIVE: flashes of light and floaters in left eye, small hemorrhage in left eye; NEGATIVE: changes in vision Negative: Cough Negative: Weakness - in extremities, Numbness - in extremities All Other Systems Reviewed And Are Negative: Yes Physical Exam - Summary Physical Exam Summary: GENERAL: Patient is a well developed and nourished male who is lying comfortable in the stretcher. Patient is not in any acute respiratory distress. HEAD AND FACE: Normocephalic EYES: PERRLA, EOMI x 2. small Subconjunctival hemorrhage at 0300 in left eye, visual acuity 20/50 on the right, 20/40 on the left and 20/25 bilaterally. EARS: Hearing grossly intact. MOUTH: Oropharynx within normal limits. NECK: Supple, trachea is midline, no adenopathy, no JVD, no carotid bruit. CHEST: Symmetric, no tenderness at palpation LUNGS: Clear to auscultation bilaterally. No wheezing or crackles. CVS: Regular rate and rhythm, S1 and S2 present, no murmurs or gallops appreciated. ABDOMEN: Soft, non-tender. Bowel sounds are normal. No abdominal abnormal pulsations. EXTREMITIES: Full ROM in all major joints, no edema, no cyanosis or clubbing. NEURO: Alert and oriented x 3. No acute neurological deficits. Speech is normal and follows commands.CN 2-12 grossly intact, no dysmetria on finger to nose testing SKIN: Dry and warm Triage Information Reviewed: Yes Vital Signs On Initial Exam: Initial Vitals Temp Pulse Resp BP Pulse Ox 99.2 F 103 18 102/72 100 04/12/18 09:16 04/12/18 09:16 04/12/18 09:16 04/12/18 09:16 04/12/18 09:16 Vital Signs Reviewed: Yes Diagnostics - Vital Signs Vital Signs Temp Pulse Resp BP Pulse Ox 04/12/18 09:16 99.2 F 103 18 102/72 100 - Laboratory Lab Statement: Any lab studies that have been ordered have been reviewed, and results considered in the medical decision making process. - CT Orbit CT CT Interpretation: No Acute Changes - No gross CT evidence for retinal or choroidal detachment. Negative unenhanced CT of the orbits. ED physician has reviewed this report. CT Interpretation Completed By: Radiologist Re-Evaluation - Re-Evaluation First Eval Re-Evaluation Time: 13:10 Change: Improved Comment: I spoke with the pt concerning Orbital CT. He notes that the subconjunctival hemorrhage is not new, and he has already been seen by a physician at Urgent Care last week for that. The white flashes have been resolved. He will be discharged home with follow up with ophthalmology. Pt agreeable with this plan. EENT Course/Dx - Course Course Of Treatment: The patient is a 52 y/o M presenting to [facility] c/o intermittent visual flashes of light and small hemorrhage in the left eye starting last night at 21:00 while the pt was driving. There is no pain associated. Pt denies numbness or weakness in extremities, changes in vision, and recent coughing. He states that he also been seeing floaters for awhile, which are being monitored by his enamel machine operator. He was unable to schedule an appointment with his enamel machine operator today so he came to the ED. He has hx of bilateral cataracts, narcolepsy, and GERD. He does not have diabetes or HTN. He has fhx of retinal detachment. Medications reviewed. No allergies noted. In the ED course, Orbit CT is negative. Patient reports that his symptoms are completely gone. PE is reassuring. upon further investigation, he rpeorts that the subconjuctival hematoma seen on exam has been there for a few days and he was evaluated at Urgent care for it. Pt is diagnosed with visual changes. He will be discharged home under stable conditions. He will follow up with ophthalmology. Return precautions discussed. Pt is agreeable with this plan. - Diagnoses Provider Diagnoses: Visual changes Discharge - Sign-Out/Discharge Documenting (check all that apply): Patient Departure - Pt will be discharged home. - Discharge Plan Condition: Stable Disposition: HOME Patient Education Materials: Visual Floaters (ED) Referrals: Babar Peña MD [Primary Care Provider] - Lam Beck MD [Medical Doctor] - 2 Days Additional Instructions: Please follow up with Dr. Beck, ophthalmology, or your own enamel machine operator in 2-3 days. Return to the emergency department for any new or worsening symptoms. - Billing Disposition and Condition Condition: STABLE Disposition: Home
--- NOTE | 2018-04-12 12:55 | RAD ---
Indication: Visual disturbance LEFT eye. History of retinal detachment. Comparison: No relevant prior exams available on the [facility] [place] for comparison. Technique: Noncontrast CT orbits. Report: Artifact from dental amalgam. Symmetric unremarkable appearance of the ocular globes without gross evidence for retinal or choroidal detachment. No noncontrast CT abnormality of the orbital contents. No fracture or osseous lesions evident. Clear paranasal sinuses. No soft tissue abnormalities evident. IMPRESSION: #. No gross CT evidence for retinal or choroidal detachment. Negative unenhanced CT of the orbits.
[2018-04-12 13:39] VITALS: BP 112/78
== END 2018-04-12 13:38 | disposition home or self-care (01) ==
LOC: ED 08:54
DX: H53.9 Unspecified visual disturbance (principal); H26.9 Unspecified cataract; G47.419 Narcolepsy without cataplexy; K21.9 Gastro-esophageal reflux disease without esophagitis; Z83.518 Family history of other specified eye disorder; Z79.899 Other long term (current) drug therapy
CPT/HCPCS: 70480; 99282

== ENCOUNTER 2023-09-01 12:38 | Observation (INO) ==
[2023-09-01 13:18] LABS: ABS Lymphocytes 0.3 10^3/uL (1.0-4.8); ABS Monocytes 0.3 10^3/uL (0.0-1.1); ABS Neutrophils 3.2 10^3/uL (1.5-7.6); ABS Nucleated RBC 0.03 10^3/ul; Eosinophil % 0.8 %; Hematocrit 43.2 % (38-53); Hemoglobin 14.8 g/dL (13.2-16.3); Lymphocyte % 8.8 %; Mean Corpuscular Hemoglobin 31.5 pg (27-33); Mean Corpuscular Hgb Conc 34.4 g/dL (31-36); Mean Corpuscular Volume 91.6 fL (80-97); Mean Platelet Volume 7.9 fL (7.5-11.2); Nucleated Red Blood Cells % 0.9 %/100WBC (0.0-0.8); Platelet Count 144 10^3/uL (150-450); Red Blood Count 4.71 10^6/uL (4.06-5.63); Red Cell Distribution Width 14.2 % (12-17); White Blood Count 3.9 10^3/uL (3.6-10.2)
[2023-09-01 13:37] LABS: Albumin 4.6 g/dL (3.2-5.2); Albumin/Globulin Ratio 1.8 (1-3); Calcium 10.1 mg/dL (8.6-10.3); Creatinine, Serum 0.99 mg/dL (0.67-1.17); Globulin 2.6 g/dL (2-4); Potassium 4.8 mmol/L (3.5-5.0); Total Bilirubin 0.8 mg/dL (0.2-1.0); Total Protein 7.2 g/dL (6.4-8.9); eGFR CKD-EPI 88.9 (>60)
[2023-09-01 15:07] LABS: High Sensitivity Troponin 1 Hr 4 pg/mL (<20)
[2023-09-01 20:15] LABS: Urine Appearance Clear; Urine Bilirubin Negative (Negative); Urine Blood Negative (Negative); Urine Color Yellow; Urine Glucose Negative (Negative); Urine Ketones Negative (Negative); Urine Nitrite Negative (Negative); Urine Protein Negative (Negative); Urine Specific Gravity 1.013 (1.002-1.030); Urine Urobilinogen Negative (Negative)
[2023-09-01] MEDS ORDERED: CMCS: Amphetamine/Dextroam ER 10(NF) 10 mg CAP.ER PO SCH (21:00)
[2023-09-02 05:40] LABS: Calcium 9.1 mg/dL (8.6-10.3); Creatinine, Serum 0.91 mg/dL (0.67-1.17); HDL Cholesterol 31.2 mg/dL; Potassium 4.1 mmol/L (3.5-5.0); eGFR CKD-EPI 98.3 (>60)
[2023-09-02 06:03] LABS: Hematocrit 40.8 % (38-53); Hemoglobin 14.2 g/dL (13.2-16.3); Mean Corpuscular Hemoglobin 31.4 pg (27-33); Mean Corpuscular Hgb Conc 34.8 g/dL (31-36); Mean Corpuscular Volume 90.1 fL (80-97); Mean Platelet Volume 8.1 fL (7.5-11.2); Platelet Count 124 10^3/uL (150-450); Red Blood Count 4.53 10^6/uL (4.06-5.63); Red Cell Distribution Width 14.3 % (12-17); White Blood Count 4.5 10^3/uL (3.6-10.2)
[2023-09-02 07:48] LABS: TSH Ultra Thyroid Stim Horm 4.16 mcIU/mL (0.34-5.60)
[2023-09-02 07:52] LABS: ABS Eosinophils 0.1 10^3/uL (0.0-0.5); ABS Lymphocytes 0.4 10^3/uL (1.0-4.8); ABS Monocytes 0.4 10^3/uL (0.0-1.1); ABS Neutrophils 3.6 10^3/uL (1.5-7.6); ABS Nucleated RBC 0.05 10^3/ul; Eosinophil % 1.6 %; Lymphocyte % 9.3 %
[2023-09-02] MEDS: CMCS: Amphetamine/Dextroam ER 10(NF) 10 mg CAP.ER PO SCH (08:29)
[2023-09-02] MEDS ORDERED: Gadoteridol (CONTRAST) 279.3 MG/ML 10 ML IV ONE (10:25)
[2023-09-02] MEDS ORDERED: Enoxaparin 40 MG/0.4 ML SYR SUBCUT SCH (18:00)
[2023-09-02] MEDS ORDERED: Iohexol 350 (CONTRAST) 500 ML MDV IV ONE (19:46)
[2023-09-03] MEDS ORDERED: Aspirin EC 81 mg TAB.EC (enteric coated) PO SCH (09:00)
[2023-09-03] MEDS: CMCS: Amphetamine/Dextroam ER 10(NF) 10 mg CAP.ER PO SCH (10:05)
[2023-09-03 10:25] LABS: Calcium 9.5 mg/dL (8.6-10.3); Creatinine, Serum 1.07 mg/dL (0.67-1.17); Potassium 4.1 mmol/L (3.5-5.0); eGFR CKD-EPI 80.9 (>60)
[2023-09-03 16:30] VITALS: BP 110/71
== END 2023-09-03 17:39 | disposition home or self-care (01) ==
LOC: EDHOLD 12:38 → ED 12:38 → SUATTDRO 15:51 → EDHOLD 09-02 10:13 → MEDTELE 09-02 18:43
PROVIDERS: ADMIT Student in an Organized Health Care Education/Training Program; ATTEND Hospitalist